=== PATIENT | female | born 1965 | race Caucasian/White ===

== ENCOUNTER 2018-08-09 06:15 | Inpatient (IN) ==
[2018-08-09] MEDS ORDERED: DUONEB (A & A) INH ONE ×2 (06:22→11:48)
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
[2018-08-09 06:27] LABS: ALLEN TEST YES; BE -5.2 mmoll (-3.0-3.0); BLOOD TYPE ARTERIAL; HCO3-(ACT) 20.4 mmoll (20.0-26.0); METHB 0.8 % (0.0-1.5); O2(CT) 18.2 mL/dL (15.0-23.0); PCO2(98.6) 48 mmHg (35-45); PO2(98.6) 341 mmHg (60-100); SAMPLE BLOOD; SAO2 99.5 % (95.0-100.0); THB 15.2 g/dL (11.5-17.4); pH(98.6) 7.27 (7.35-7.45)
[2018-08-09 06:28] LABS: MODALITY NRB
[2018-08-09] MEDS ORDERED: NS 1,000 ML IV ONE ×2 (06:28→11:13)
[2018-08-09 06:29] LABS: O2HB 81.1 % (95.0-99.0)
--- NOTE | 2018-08-09 07:16 | Diag Imaging Result Doc PS360 ---
EXAM: CHEST-1 VIEW 08/09/2018 HISTORY: sob TECHNIQUE: AP portable at 0703 COMMENT: There is some questionable atelectasis in the lung bases. Overall the appearance the chest has not changed appreciably since 10/01/2017. IMPRESSION: Questionable atelectasis. Electronically signed by Ambrose Nice 08/09/2018 7:13 AM
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
[2018-08-09 08:53] LABS: BASO# 0.03 X1000 (0.0-0.2); BASO% 0.3 % (0.0-0.8); EOS# 0.04 X1000 (0.0-0.7); EOS% 0.4 % (0.0-10.0); HEMATOCRIT 47.6 % (37.0-47.0); HEMOGLOBIN 15.3 g/dL (12.0-16.0); LYMPH# 1.94 X1000 (1.2-3.4); LYMPH% 21.2 % (20.5-51.1); MCH 31.4 PG (27-31); MCHC 32.1 g/dL (33-37); MCV 97.7 FL (81-99); MONO# 0.55 X1000 (0.11-0.59); MPV 12.8 FL (7.4-10.4); NEUT# 6.57 X1000 (1.4-6.5); NEUT% 72.1 % (42.2-75.2); PLT 111 X1000 (130-400); RBC 4.87 XMIL (4.2-5.4); RDW 13.8 % (11.5-14.5); WBC 9.13 X1000 (4.8-10.8)
[2018-08-09 09:01] LABS: INR 1.55; PROTIME 19.8 Seconds (11.0-16.0)
[2018-08-09 09:02] LABS: PTT 42.9 Seconds (22.3-41.8)
[2018-08-09 09:10] LABS: AGAP 13; ALB/GLOB RATIO 0.5; ALBUMIN 2.9 g/dL (3.5-5.0); ALKALINE PHOSPHATASE 266 U/L (32-104); BUN 11 mg/dL (8-22); CALCIUM 8.8 mg/dL (8.8-10.2); CHLORIDE 98 mmol/L (98-107); COSMO 283; CREATININE 0.7 mg/dL (0.5-0.9); ESTIMATED GFR > 60; GLUCOSE 334 mg/dL (70-104); GOT 294 U/L (10-30); GPT 376 U/L (10-36); POTASSIUM 4.2 mmol/L (3.5-5.1); SODIUM 135 mmol/L (136-145); TCO2 24 mmol/L (25-35); TOTAL BILIRUBIN 1.02 mg/dL (0.20-1.00); TOTAL PROTEIN 8.3 g/dL (6.3-8.3)
[2018-08-09] MEDS: PROTONIX IV SCH (11:15)
[2018-08-09 11:37] LABS: ALLEN TEST YES; BE -2.9 mmoll (-3.0-3.0); BLOOD TYPE ARTERIAL; HCO3-(ACT) 22.6 mmoll (20.0-26.0); METHB 1.3 % (0.0-1.5); O2(CT) 20.2 mL/dL (15.0-23.0); O2HB 94.6 % (95.0-99.0); PCO2(98.6) 44 mmHg (35-45); PO2(98.6) 220 mmHg (60-100); SAMPLE BLOOD; SAO2 99.7 % (95.0-100.0); THB 14.8 g/dL (11.5-17.4); pH(98.6) 7.33 (7.35-7.45)
[2018-08-09 11:38] LABS: MODALITY NRB
[2018-08-09] MEDS: SODIUM CHLORIDE 0.9% INJ SCH (11:41)
[2018-08-09 12:17] LABS: HEMOGLOBIN A1C 9.1 % (4.8-6.0)
[2018-08-09] MEDS: CARAFATE PO SCH ×3 (12:31→21:00)
[2018-08-09] MEDS ORDERED: TORADOL IV ONE (12:39)
[2018-08-09] MEDS ORDERED: HUMULIN R SUBQ ONE (12:41)
[2018-08-09] MEDS: BUSPAR PO SCH ×2 (12:48→17:00)
[2018-08-09] MEDS: HUMULIN R SUBQ SCH ×2 (16:00→21:00)
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
[2018-08-09 17:49] LABS: URINE SOURCE CLEAN CATCH
[2018-08-09 17:54] LABS: BILIRUBIN URINE SMALL (NEGATIVE); BLOOD URINE NEGATIVE (NEGATIVE); COLOR YELLOW; GLUCOSE URINE 500 mg/dL (NEGATIVE); KETONE URINE TRACE mg/dL (NEGATIVE); LEUKOCYTES URINE LARGE (NEGATIVE); NITRITE URINE NEGATIVE (NEGATIVE); PROTEIN URINE 50 mg/dL (NEGATIVE); TURBIDITY URINE HAZY (CLEAR); UR EPITHELIAL CELLS <10 /HPF (<10); URINE BACTERIA 2+ /HPF; URINE RBC <10 /HPF (<10); URINE WBC TNTC /HPF (<10); UROBILINOGEN URINE 4 mg/dL (NORMAL)
[2018-08-09 18:09] LABS: UR AMPHETAMINES QUAL NONE DETECTED (NONE DETECT); UR BARBITUATES QUAL NONE DETECTED (NONE DETECT); UR BENZODIAZEPIN QUAL NONE DETECTED (NONE DETECT); UR CANNABINOIDS QUAL PRESUMPTIVE POSITIVE (NONE DETECT); UR COCAINE QUAL NONE DETECTED (NONE DETECT); UR METHADONE QUAL NONE DETECTED (NONE DETECT); UR OPIATES QUAL NONE DETECTED (NONE DETECT); UR OXYCODONE QUAL NONE DETECTED (NONE DETECT); UR PCP QUAL NONE DETECTED (NONE DETECT)
[2018-08-09 18:22] LABS: CK INDEX 3.3 (0.0-2.5); CK-MB 9.43 ng/mL (0.0-5.0)
[2018-08-09] MEDS: LOPRESSOR PO SCH (21:47)
[2018-08-09] MEDS: COGENTIN PO SCH (22:13)
[2018-08-09] MEDS: BASAGLAR SUBQ SCH (22:14)
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
[2018-08-10 01:09] LABS: CK INDEX 2.2 (0.0-2.5); CK-MB 9.28 ng/mL (0.0-5.0)
[2018-08-10] MEDS: NORCO-10 PO PRN ×2 (05:15→16:04)
[2018-08-10 06:44] LABS: INR 1.32; PROTIME 17.4 Seconds (11.0-16.0)
[2018-08-10] MEDS: HUMULIN R SUBQ SCH ×4 (07:00→22:20)
[2018-08-10 07:13] LABS: AGAP 8; ALB/GLOB RATIO 0.6; ALBUMIN 2.8 g/dL (3.5-5.0); ALKALINE PHOSPHATASE 182 U/L (32-104); BUN 12 mg/dL (8-22); CALCIUM 8.4 mg/dL (8.8-10.2); CHLORIDE 100 mmol/L (98-107); COSMO 274; CREATININE 0.6 mg/dL (0.5-0.9); ESTIMATED GFR > 60; GLUCOSE 206 mg/dL (70-104); GOT 254 U/L (10-30); GPT 291 U/L (10-36); MAGNESIUM 1.7 mg/dL (1.5-2.7); POTASSIUM 4.3 mmol/L (3.5-5.1); SODIUM 134 mmol/L (136-145); TCO2 26 mmol/L (25-35); TOTAL BILIRUBIN 1.53 mg/dL (0.20-1.00); TOTAL PROTEIN 7.4 g/dL (6.3-8.3)
[2018-08-10 08:40] LABS: ALLEN TEST YES; BE 0.7 mmoll (-3.0-3.0); BLOOD TYPE ARTERIAL; HCO3-(ACT) 25.4 mmoll (20.0-26.0); METHB 1.1 % (0.0-1.5); O2(CT) 18.2 mL/dL (15.0-23.0); O2HB 94.6 % (95.0-99.0); PO2(98.6) 88 mmHg (60-100); SAMPLE BLOOD; THB 13.6 g/dL (11.5-17.4); pH(98.6) 7.32 (7.35-7.45)
[2018-08-10 08:41] LABS: MODALITY CANNULA
[2018-08-10 08:42] LABS: PCO2(98.6) 54 mmHg (35-45)
[2018-08-10] MEDS: BASAGLAR SUBQ SCH ×5 (08:46→22:20)
[2018-08-10] MEDS: BUSPAR PO SCH ×4 (08:48→16:05)
[2018-08-10] MEDS: LOPRESSOR PO SCH ×2 (08:49→22:19)
[2018-08-10] MEDS: CARAFATE PO SCH ×4 (08:49→22:19)
[2018-08-10] MEDS: XARELTO PO SCH (09:00)
[2018-08-10] MEDS: CARDIZEM CD PO SCH (09:00)
--- NOTE | 2018-08-10 10:30 | Diag Imaging Result Doc PS360 ---
EXAM: CHEST-PORTABLE HISTORY: Dyspnea TECHNIQUE: Portable chest single view COMPARISON: 08/09/2018 FINDINGS: The lungs are well expanded. The heart is mildly enlarged. The vessels are mildly distended. There are no infiltrates. No effusion identified. IMPRESSION: Pulmonary edema with mild cardiomegaly. Electronically signed by Charlie Alvarenga 08/10/2018 10:28 AM
[2018-08-10] MEDS ORDERED: LASIX IV ONE (10:45)
[2018-08-10] MEDS: PROTONIX IV SCH (11:15)
[2018-08-10] MEDS: ROCEPHIN 1 GM in NS 50 ML IV SCH (11:30)
[2018-08-10] MEDS: LIPITOR PO SCH (12:00)
[2018-08-10] MEDS: COGENTIN PO SCH ×2 (12:00→22:19)
[2018-08-10] MEDS: ABILIFY PO SCH (12:00)
[2018-08-10] MEDS: PAXIL PO SCH (12:00)
--- NOTE | 2018-08-10 16:07 | PROGRESS NOTE ---
DATE: 08/10/2018 SUBJECTIVE: The patient is resting comfortably in bed. She has been getting up and going to the restroom without any difficulty. She states that she feels a little bit better today. OBJECTIVE: Vital Signs: Temperature 97.9 degrees, blood pressure 121/78, heart rate 78, respirations 14, O2 saturation 96% on 2 L nasal cannula. General: This is a morbidly obese female lying in bed in no acute distress. Heart: S1, S2 normal. Regular rate and rhythm. Lungs: Equal air entry bilaterally. No crackles. No rales. Abdomen: Positive bowel sounds. Soft, nontender, nondistended. Extremities: No edema, no cyanosis. Neurologic : The patient is alert and oriented x4. LABS: Sodium 134, potassium 4.3, chloride 100, CO2 26, BUN 12, creatinine 0.6, glucose 206, calcium 8.4. ABG, pH of 7, 7.32, pCO2 54, PO2 88, bicarb 25. ASSESSMENT AND PLAN: 1. Acute on chronic hypoxemic and hypercapnic respiratory failure. Continue with supportive care, bronchodilator therapy and treatment of the underlying COPD exacerbation. 2. Chronic obstructive pulmonary disease exacerbation. Continue on the current medication regimen. 3. Morbid obesity. Aware. 4. Elevated liver function tests. The patient had an abdominal ultrasound last month that revealed fatty liver disease. We will check a hepatitis profile. Of note, the patient's LFTs were elevated last month. 5. Urinary tract infection. A urine culture has been obtained. Will start the patient on Rocephin. 6. Tobacco dependence. The patient has been counseled about smoking cessation. 7. Diabetes mellitus type 2. Continue on sliding scale insulin and Lantus. 8. Paroxysmal atrial fibrillation. Continue on Cardizem CD. Will restart the patient's Xarelto. 9. Situational depression. Continue on Paxil. cc: Marybel Smiley MD MTDD
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
[2018-08-11] MEDS: NORCO-10 PO PRN ×2 (00:52→17:08)
[2018-08-11 03:37] LABS: ALLEN TEST YES; BLOOD TYPE ARTERIAL; HCO3-(ACT) 27.1 mmoll (20.0-26.0); METHB 1.1 % (0.0-1.5); O2(CT) 17.2 mL/dL (15.0-23.0); PCO2(98.6) 49 mmHg (35-45); PO2(98.6) 58 mmHg (60-100); SAMPLE BLOOD; SAO2 92.8 % (95.0-100.0); THB 13.7 g/dL (11.5-17.4); pH(98.6) 7.38 (7.35-7.45)
[2018-08-11 03:39] LABS: MODALITY CANNULA; O2HB 89.5 % (95.0-99.0)
[2018-08-11 05:58] LABS: HEMATOCRIT 40.2 % (37.0-47.0); HEMOGLOBIN 13.1 g/dL (12.0-16.0); MCH 31.7 PG (27-31); MCHC 32.6 g/dL (33-37); MCV 97.3 FL (81-99); MPV 12.5 FL (7.4-10.4); RBC 4.13 XMIL (4.2-5.4); RDW 13.4 % (11.5-14.5); WBC 8.82 X1000 (4.8-10.8)
[2018-08-11 06:07] LABS: INR 1.66; PROTIME 20.9 Seconds (11.0-16.0)
[2018-08-11] MEDS: HUMULIN R SUBQ SCH ×4 (06:19→21:21)
[2018-08-11 06:22] LABS: AGAP 9; ALB/GLOB RATIO 0.6; ALBUMIN 2.8 g/dL (3.5-5.0); ALKALINE PHOSPHATASE 174 U/L (32-104); BUN 14 mg/dL (8-22); CALCIUM 8.8 mg/dL (8.8-10.2); CHLORIDE 98 mmol/L (98-107); COSMO 273; CREATININE 0.7 mg/dL (0.5-0.9); ESTIMATED GFR > 60; GLUCOSE 171 mg/dL (70-104); GOT 307 U/L (10-30); GPT 324 U/L (10-36); MAGNESIUM 1.7 mg/dL (1.5-2.7); POTASSIUM 4.2 mmol/L (3.5-5.1); SODIUM 134 mmol/L (136-145); TCO2 27 mmol/L (25-35); TOTAL BILIRUBIN 1.48 mg/dL (0.20-1.00); TOTAL PROTEIN 7.5 g/dL (6.3-8.3)
[2018-08-11] MEDS: ROCEPHIN 1 GM in NS 50 ML IV SCH (08:37)
[2018-08-11] MEDS: BASAGLAR SUBQ SCH ×3 (08:38→21:21)
[2018-08-11] MEDS: LIPITOR PO SCH (08:39)
[2018-08-11] MEDS: PAXIL PO SCH (08:39)
[2018-08-11] MEDS: COGENTIN PO SCH ×2 (08:40→21:21)
[2018-08-11] MEDS: LOPRESSOR PO SCH ×2 (08:40→21:20)
[2018-08-11] MEDS: ABILIFY PO SCH (08:40)
[2018-08-11] MEDS: BUSPAR PO SCH ×3 (08:41→17:12)
[2018-08-11] MEDS: CARAFATE PO SCH ×4 (08:41→21:20)
[2018-08-11] MEDS: CARDIZEM CD PO SCH (08:41)
[2018-08-11] MEDS: XARELTO PO SCH (08:41)
--- NOTE | 2018-08-11 09:25 | Diag Imaging Result Doc PS360 ---
EXAM: CHEST-PORTABLE - 08/11/2018 HISTORY: Dyspnea TECHNIQUE: Portable chest COMPARISON: 08/10/2018 FINDINGS: Heart size appears borderline enlarged. There is mild prominence of central vascular markings. There is no dense consolidation, substantial pleural effusion, or pneumothorax identified. IMPRESSION: No significant change from prior. Electronically signed by Tino Causey 08/11/2018 9:23 AM
--- NOTE | 2018-08-11 09:41 | Diag Imaging Result Doc PS360 ---
EXAM: CT HEAD W/O CONTRAST - 08/11/2018 HISTORY: encephalopathy TECHNIQUE: CT head without contrast COMPARISON: None. FINDINGS: There is no evidence of intracranial hemorrhage, mass effect, midline shift, or hydrocephalus. There is no evidence of infarct, although acute infarcts may not be immediately visible. There is an apparent mucous cyst noted at the inferior left maxillary sinus. The bilateral mastoids are less aerated than typical, but the appearance suggests that this is likely long-standing. IMPRESSION: No visible acute intracranial abnormality. No hemorrhage or mass effect. This exam was performed using automated exposure control, adjustment of mA or kV according to patient size, and/or use of iterative reconstruction technique. Electronically signed by Tino Causey 08/11/2018 9:38 AM
--- NOTE | 2018-08-11 10:43 | Diag Imaging Result Doc PS360 ---
EXAM: CT ABDOMEN/PELVIS W/O CONTRAST - 08/11/2018 HISTORY: elevated liver function TECHNIQUE: CT abdomen/pelvis without contrast. No contrast administered per request the referring provider. COMPARISON: 12/31/2014 FINDINGS: The liver is somewhat prominent in size similar to prior. There is apparent fluid in the intersegmental fissure of the left lobe of liver and extending slightly below the fissure, which was not present on the prior exam. There is no gas in the fluid. There is no other ascites identified. There is no other discrete focal liver lesion identified. There are no acute changes identified in the spleen, adrenal glands, or pancreas. There is stable mild enlargement left adrenal gland. The gallbladder surgically absent. There is no renal stone or hydronephrosis identified. There are mildly prominent retroperitoneal lymph nodes similar to prior. There are atherosclerotic calcifications noted. There are lower lumbar spine degenerative changes noted. There are several fat-containing anterior abdominal wall hernias. There is no bowel containing hernia identified. There is no evidence of bowel obstruction. There is no gas containing abscess identified. There is no free air identified. Images of pelvis show no discrete mass or abnormal fluid collection. IMPRESSION: Hepatomegaly. Fluid in intersegmental fissure of left lobe of liver. No associated gas. No other ascites. No other discrete focal liver lesion. Stable nonspecific mild enlargement left adrenal gland. Stable mildly prominent retroperitoneal lymph nodes. Multiple fat-containing anterior abdominal wall hernias. No bowel containing hernia. No bowel obstruction. This exam was performed using automated exposure control, adjustment of mA or kV according to patient size, and/or use of iterative reconstruction technique. Electronically signed by Tino Causey 08/11/2018 10:41 AM
[2018-08-11] MEDS: DUONEB (A & A) INH SCH ×4 (11:09→23:36)
[2018-08-11] MEDS: LACTULOSE PO SCH ×2 (11:56→21:21)
[2018-08-11] MEDS: PROTONIX IV SCH (11:57)
[2018-08-11] MEDS ORDERED: VITAMIN K 10 MG in NS 50 ML IV ONE (11:57)
[2018-08-11 13:12] LABS: HEPATITIS PROFILE ACUTE SEE COMMENTS
--- NOTE | 2018-08-11 13:48 | PROGRESS NOTE ---
DATE: 08/11/2018 SUBJECTIVE: The patient is awake but lethargic at times. OBJECTIVE: Vital Signs: Temperature 98.3 degrees, blood pressure 102/64, heart rate 58, respirations 18, O2 saturation 96% on 2 L nasal cannula. General: This is a morbidly obese female lying in bed in no acute distress. Heart: S1, S2. Normal, bradycardic. Lungs: Mild expiratory wheezes bilaterally. Abdomen: Positive bowel sounds. Soft, obese, nontender. Extremities: No edema, no cyanosis. Neuro: The patient is alert and oriented x3. LABS: White blood cell count 8.8, hemoglobin 13, hematocrit 40, platelets 124, 000, INR 1.6, sodium 134, potassium 4.2, chloride 98, CO2 27, BUN 14, creatinine 0.7, glucose 171, calcium 8.8, AST 307, ALT 324, alkaline phosphatase 174, ammonia 67, albumin 2.8. CT of the abdomen and pelvis shows hepatomegaly. No ascites. No liver lesion. Mild retroperitoneal lymph nodes. ASSESSMENT AND PLAN: 1. Acute on chronic hypoxemic respiratory failure. Continue with bronchodilator therapy plus supplemental oxygen. 2. Chronic obstructive pulmonary disease exacerbation. Continue with bronchodilator therapy and supplemental oxygen. 3. Diabetes mellitus type 2. Continue on glargine plus sliding scale insulin. 4. Paroxysmal atrial fibrillation. Continue on Cardizem CD and Xarelto. 5. Elevated liver function tests/Hep C. Will await recommendations from GI. 6. Coagulopathy. Vitamin K has been ordered by GI. Will monitor the patient 's INR closely. 7. Constipation. Will add lactulose. 8. Hyperammonemia. Lactulose has been added, will monitor the patient's mental status closely. 9. Situational depression. Continue on Paxil. 10. Urinary tract infection secondary to Klebsiella. Continue on Rocephin. 11. Will consult physical therapy. cc: Marybel Smiley MD MTDD
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
[2018-08-12] MEDS: NORCO-10 PO PRN ×3 (03:16→21:21)
[2018-08-12] MEDS: DUONEB (A & A) INH SCH ×6 (03:20→23:35)
[2018-08-12 05:54] LABS: INR 1.56; MCH 31.7 PG (27-31); MCHC 32.5 g/dL (33-37); MCV 97.6 FL (81-99); MPV 13.1 FL (7.4-10.4); PROTIME 19.9 Seconds (11.0-16.0); RBC 4.1 XMIL (4.2-5.4); RDW 13.4 % (11.5-14.5); WBC 7.86 X1000 (4.8-10.8)
[2018-08-12 06:07] LABS: AGAP 11; ALB/GLOB RATIO 0.6; ALBUMIN 2.7 g/dL (3.5-5.0); ALKALINE PHOSPHATASE 185 U/L (32-104); BUN 16 mg/dL (8-22); CHLORIDE 103 mmol/L (98-107); COSMO 285; CREATININE 0.7 mg/dL (0.5-0.9); ESTIMATED GFR > 60; GLUCOSE 184 mg/dL (70-104); GOT 364 U/L (10-30); GPT 340 U/L (10-36); MAGNESIUM 1.7 mg/dL (1.5-2.7); POTASSIUM 4.1 mmol/L (3.5-5.1); SODIUM 140 mmol/L (136-145); TCO2 26 mmol/L (25-35); TOTAL BILIRUBIN 1.03 mg/dL (0.20-1.00); TOTAL PROTEIN 7.6 g/dL (6.3-8.3)
[2018-08-12] MEDS: HUMULIN R SUBQ SCH ×4 (06:22→21:19)
--- NOTE | 2018-08-12 07:16 | Diag Imaging Result Doc PS360 ---
EXAM: CHEST-PORTABLE 08/12/2018 HISTORY: Dyspnea TECHNIQUE: AP portable at 0557 COMMENT: The inspiration is less optimal than on 08/11/2018. Considering this there has actually been some improvement with regard to the opacity in the right base. IMPRESSION: Improved pulmonary edema. Electronically signed by Ambrose Nice 08/12/2018 7:14 AM
[2018-08-12] MEDS: CARAFATE PO SCH ×4 (08:29→21:18)
[2018-08-12] MEDS: ROCEPHIN 1 GM in NS 50 ML IV SCH (08:29)
[2018-08-12] MEDS: XARELTO PO SCH (08:29)
[2018-08-12] MEDS: ABILIFY PO SCH (08:31)
[2018-08-12] MEDS: COGENTIN PO SCH ×2 (08:32→21:19)
[2018-08-12] MEDS: BUSPAR PO SCH ×3 (08:32→17:11)
[2018-08-12] MEDS: LIPITOR PO SCH (08:32)
[2018-08-12] MEDS: CARDIZEM CD PO SCH (08:33)
[2018-08-12] MEDS: LACTULOSE PO SCH ×2 (08:33→21:19)
[2018-08-12] MEDS: PAXIL PO SCH (08:33)
[2018-08-12] MEDS: LOPRESSOR PO SCH ×2 (08:33→21:19)
[2018-08-12] MEDS: BASAGLAR SUBQ SCH ×3 (08:34→21:20)
[2018-08-12] MEDS: PROTONIX IV SCH (11:01)
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
--- NOTE | 2018-08-13 01:53 | PROGRESS NOTE ---
DATE: 08/12/2018 SUBJECTIVE: The nursing staff reports that the patient was confused overnight. OBJECTIVE: Vital Signs: Temperature 97.9 degrees, blood pressure 129/62, heart rate 53, respirations 19, O2 saturation is 95% on 3 L nasal cannula. General: This is a morbidly obese female lying in bed in no acute distress. Heart: S1 and S2 normal. Bradycardic. Lungs: Equal air entry bilaterally. Mild expiratory wheezes. Abdomen: Positive bowel sounds. Soft, nontender, nondistended. Extremities: No edema. No cyanosis. Neurologic: The patient is alert and oriented x3. LABS: White blood cell count 7.8, hemoglobin 13, hematocrit 40, platelets 127, 000. INR 1.5. Sodium 140, potassium 4.1, chloride 103, CO2 is 26, BUN 16, creatinine 0.7 glucose 184, total bilirubin 1, AST 364, ALT 340, alkaline phosphatase 185, albumin 2.7. ASSESSMENT AND PLAN: 1. Encephalopathy. The patient's confusion appears to be worse at night. The head CT done yesterday was unremarkable. We will continue to monitor the patient closely. 2. Acute on chronic hypoxemic respiratory failure. Stable. Continue with bronchodilator therapy and supplemental oxygen. 3. Chronic obstructive pulmonary disease. Continue with bronchodilator therapy and supplemental oxygen. 4. Elevated liver function tests with hepatitis C. Unchanged. Will await further recommendations from Gastroenterology. 5. Paroxysmal atrial fibrillation. Continue on Cardizem CD and Xarelto. 6. Diabetes mellitus type 2. Continue on glargine and sliding scale insulin. 7. Coagulopathy. Slightly improved. The patient received vitamin K yesterday. We will repeat the international normalized ratio tomorrow. 8. Constipation. Continue with laxative therapy. 9. Urinary tract infection secondary to Klebsiella. Continue on Rocephin. 10. Morbid obesity. Aware. 11. Situational depression. Continue on Paxil. 12. Continue with physical therapy. cc: MD DINO Mccain
[2018-08-13] MEDS: DUONEB (A & A) INH SCH ×6 (03:40→23:12)
[2018-08-13 05:39] LABS: HEMATOCRIT 38.9 % (37.0-47.0); HEMOGLOBIN 12.7 g/dL (12.0-16.0); MCH 31.5 PG (27-31); MCHC 32.6 g/dL (33-37); MCV 96.5 FL (81-99); MPV 13.1 FL (7.4-10.4); RBC 4.03 XMIL (4.2-5.4); RDW 13.3 % (11.5-14.5); WBC 7.15 X1000 (4.8-10.8)
[2018-08-13 05:46] LABS: INR 1.59; PROTIME 20.1 Seconds (11.0-16.0)
[2018-08-13 06:01] LABS: AGAP 11; ALB/GLOB RATIO 0.6; ALBUMIN 2.7 g/dL (3.5-5.0); ALKALINE PHOSPHATASE 169 U/L (32-104); BUN 13 mg/dL (8-22); CALCIUM 8.2 mg/dL (8.8-10.2); CHLORIDE 101 mmol/L (98-107); COSMO 281; CREATININE 0.6 mg/dL (0.5-0.9); ESTIMATED GFR > 60; GLUCOSE 153 mg/dL (70-104); GOT 341 U/L (10-30); GPT 336 U/L (10-36); MAGNESIUM 1.5 mg/dL (1.5-2.7); POTASSIUM 3.5 mmol/L (3.5-5.1); SODIUM 139 mmol/L (136-145); TCO2 27 mmol/L (25-35); TOTAL BILIRUBIN 1.14 mg/dL (0.20-1.00); TOTAL PROTEIN 7.5 g/dL (6.3-8.3)
[2018-08-13] MEDS: HUMULIN R SUBQ SCH ×4 (06:41→20:54)
--- NOTE | 2018-08-13 07:48 | Diag Imaging Result Doc PS360 ---
CHEST-PORTABLE - 08/13/2018 INDICATION: Dyspnea COMPARISON: 08/12/2018 FINDINGS: Stable cardiomegaly and pulmonary vascular congestion. No infiltrates or significant edema. No pneumothorax or large pleural effusion. Lung volumes are somewhat low. IMPRESSION: No change from prior. Electronically signed by Josef Estrella 08/13/2018 7:46 AM
[2018-08-13] MEDS: CARDIZEM CD PO SCH (08:46)
[2018-08-13] MEDS: LOPRESSOR PO SCH ×2 (08:46→20:53)
[2018-08-13] MEDS: ROCEPHIN 1 GM in NS 50 ML IV SCH (08:46)
[2018-08-13] MEDS: LACTULOSE PO SCH ×2 (08:46→20:54)
[2018-08-13] MEDS: COGENTIN PO SCH ×2 (08:46→20:54)
[2018-08-13] MEDS: BUSPAR PO SCH ×3 (08:46→20:53)
[2018-08-13] MEDS: CARAFATE PO SCH ×4 (08:46→20:53)
[2018-08-13] MEDS: PROTONIX IV SCH (08:46)
[2018-08-13] MEDS: PAXIL PO SCH (08:47)
[2018-08-13] MEDS: XARELTO PO SCH (08:47)
[2018-08-13] MEDS: BASAGLAR SUBQ SCH ×3 (08:47→20:54)
[2018-08-13] MEDS: ABILIFY PO SCH (08:47)
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
--- NOTE | 2018-08-13 15:51 | PROGRESS NOTE ---
DATE: 08/13/2018 SUBJECTIVE: The patient resting comfortably in bed. Not in any obvious distress. OBJECTIVE: Vital Signs: Vital signs are as follows: Temperature 97.9 degrees, pulse 54, respiratory rate 19, blood pressure is 114/57, oxygen is 91%. HEENT: Atraumatic, normocephalic. Cardiovascular System: Distant heart sounds. Respiratory System: Relatively clear to auscultation. May have occasional rhonchi. Abdomen: Obese, nontender. No masses felt. Extremities: No significant edema. Central nervous system: No obvious focal deficits noted. LABS: Labs are as follows: WBC is 7.15, hematocrit is 38.9 with a platelet count of 112. INR is 1.59. Last ABG done on 08/11/2018 7.38/49/58/92.8 percent. Sodium is 139, potassium is 3.5, chloride is 101, bicarbonate is 27. BUN is 8, creatinine 0.6. Liver function tests: AST 341, ALT 36. ASSESSMENT AND PLAN: 1. Encephalopathy. This seems to be improving. This may be related to hepatic encephalopathy. We will continue patient on lactulose, and continue to follow up on patient's mental status. 2. Acute on chronic respiratory failure. Maintain patient on oxygen. Follow up on respiratory status. 3. Chronic obstructive pulmonary disease. Continue nebulized bronchodilators. 4. Chronic hepatitis C infection. CT of the abdomen and pelvis shows evidence of hepatomegaly. We will get abdominal ultrasound, and also check her alpha fetoprotein level. 5. Paroxysmal atrial fibrillation. Continue rate controlling agent as well as Xarelto. 6. Diabetes mellitus. Continue blood sugar monitoring, as well as sliding scale insulin. 7. Urinary tract infection secondary to Klebsiella. Continue antibiotics. 8. Morbid obesity. Aware. The patient will need to be on a low-calorie diet. 9. Situational depression. Continue Paxil. 10. Deep vein thrombosis prophylaxis. The patient is on Xarelto. 11. Deconditioning. The patient will require routine physical therapy. cc: Oscar Aly MD
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
[2018-08-13] MEDS: LIPITOR PO SCH (20:53)
[2018-08-14] MEDS: DUONEB (A & A) INH SCH ×5 (03:22→19:50)
[2018-08-14] MEDS: HUMULIN R SUBQ SCH ×4 (06:30→21:22)
--- NOTE | 2018-08-14 07:37 | Diag Imaging Result Doc PS360 ---
EXAM: CHEST-PORTABLE HISTORY: Dyspnea TECHNIQUE: Portable chest single view COMPARISON: 08/13/2018 FINDINGS: Poor inspiratory effort. The heart is mildly enlarged. The vessels are mildly distended. There are no infiltrates. No effusion identified. IMPRESSION: Mild pulmonary edema with mild cardiomegaly. Electronically signed by Charlie Alvarenga 08/14/2018 7:35 AM
--- NOTE | 2018-08-14 09:03 | Diag Imaging Result Doc PS360 ---
EXAM: US ABDOMEN-COMPLETE HISTORY: hep.c TECHNIQUE: Abdominal ultrasound COMPARISON: 06/25/2018 FINDINGS: Difficult exam due to patient's body habitus and condition. The pancreas is predominantly obscured. No abdominal aortic aneurysm. There is fatty infiltration of the liver. It is difficult to penetrate the posterior liver. The liver measures 20.2 cm in length. There is a 5.5 cm cyst within it. The common bile that measures 4 mm. The gallbladder has been removed. Normal right kidney. No hydronephrosis. Normal spleen. The left kidney is partly obscured. No hydronephrosis. IMPRESSION: 1.Hepatomegaly with fatty infiltration. There is a cyst in the left lobe versus fluid within the fissure. 2.Cholecystectomy Electronically signed by Charlie Alvarenga 08/14/2018 9:00 AM
[2018-08-14] MEDS: ROCEPHIN 1 GM in NS 50 ML IV SCH (09:33)
[2018-08-14] MEDS: PAXIL PO SCH (09:34)
[2018-08-14] MEDS: XARELTO PO SCH (09:34)
[2018-08-14] MEDS: LIPITOR PO SCH (09:34)
[2018-08-14] MEDS: COGENTIN PO SCH ×2 (09:35→21:21)
[2018-08-14] MEDS: ABILIFY PO SCH (09:35)
[2018-08-14] MEDS: SODIUM CHLORIDE 0.9% INJ SCH (09:35)
[2018-08-14] MEDS: CARAFATE PO SCH ×4 (09:35→21:22)
[2018-08-14] MEDS: LACTULOSE PO SCH ×2 (09:35→21:22)
[2018-08-14] MEDS: PROTONIX IV SCH (09:35)
[2018-08-14] MEDS: CARDIZEM CD PO SCH (09:35)
[2018-08-14] MEDS: BUSPAR PO SCH ×3 (09:35→16:54)
[2018-08-14] MEDS: LOPRESSOR PO SCH ×2 (09:35→21:21)
[2018-08-14] MEDS: BASAGLAR SUBQ SCH ×3 (09:37→21:22)
--- NOTE | 2018-08-14 11:25 | PROGRESS NOTE ---
DATE: 08/14/2018 SUBJECTIVE: The patient is resting comfortably in bed. The patient is awake and seated on a chair. OBJECTIVE: Vital Signs: Temperature 98.7 degrees, pulse 62, respirations 28, blood pressure is 125/53, oxygen saturation is 92%. HEENT: She is atraumatic and normocephalic. Cardiovascular System: Distant heart sounds. Respiratory System: No rales or rhonchi noted. Abdomen: Obese, nontender. No masses felt. Extremities: Edema noted in the lower extremities. Central Nervous System: No obvious focal deficit noted. Labs: Alpha fetoprotein level found to be raised at 18.3. Abdominal ultrasound shows hepatomegaly with fatty infiltration. ASSESSMENT AND PLAN: 1. Encephalopathy. This seem to be improving. Continue to follow up on the patient's clinical progression. 2. Acute on chronic respiratory failure. We are going to maintain patient on oxygen. Follow up on her respiratory status. Check arterial blood gases. 3. Chronic obstructive pulmonary disease. Continue nebulized bronchodilators. 4. Chronic hepatitis C infection. The patient's alpha fetoprotein level was found to be raised. Abdominal ultrasound shows evidence of a fatty liver. We will get the patient to follow up with gastroenterology as well as oncology as an outpatient. 5. Paroxysmal atrial fibrillation. Continue rate controlling agent as well as Xarelto. 6. Diabetes mellitus. Continue blood sugar monitoring as well as sliding scale insulin. 7. Urinary tract infection secondary to Klebsiella. Continue antibiotics. 8. Morbid obesity. The patient will need to be on a low calorie diet. 9. Situational depression. Continue Paxil. 10. Deep vein thrombosis prophylaxis. Patient is on Xarelto. 11. Deconditioning. Physical therapy consulted. cc: Oscar Aly MD
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
[2018-08-14 12:26] LABS: ALLEN TEST YES; BE 4.4 mmoll (-3.0-3.0); BLOOD TYPE ARTERIAL; HCO3-(ACT) 28.3 mmoll (20.0-26.0); METHB 0.8 % (0.0-1.5); O2(CT) 16.7 mL/dL (15.0-23.0); O2HB 93.6 % (95.0-99.0); PCO2(98.6) 39 mmHg (35-45); PO2(98.6) 68 mmHg (60-100); SAMPLE BLOOD; SAO2 96.1 % (95.0-100.0); THB 12.7 g/dL (11.5-17.4); pH(98.6) 7.47 (7.35-7.45)
[2018-08-14 12:27] LABS: MODALITY ROOM AIR
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
[2018-08-14] MEDS ORDERED: HALDOL IM PRN (16:43)
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
[2018-08-15] MEDS: DUONEB (A & A) INH SCH ×7 (00:04→23:00)
[2018-08-15] MEDS: NORCO-10 PO PRN ×2 (00:06→20:54)
[2018-08-15] MEDS: HUMULIN R SUBQ SCH ×4 (06:06→20:56)
--- NOTE | 2018-08-15 07:46 | Diag Imaging Result Doc PS360 ---
EXAM: CHEST-PORTABLE 08/15/2018 HISTORY: Dyspnea TECHNIQUE: AP portable at 0546 COMMENT: There is increased pulmonary vascularity and interstitial opacity. There is cardiomegaly. Compared to 08/14/2018 the pulmonary edema is slightly worse. IMPRESSION: Worsened pulmonary edema. Electronically signed by Ambrose Nice 08/15/2018 7:44 AM
[2018-08-15] MEDS: PAXIL PO SCH (09:09)
[2018-08-15] MEDS: LEVAQUIN PO SCH (09:09)
[2018-08-15] MEDS: COGENTIN PO SCH ×2 (09:09→20:55)
[2018-08-15] MEDS: LOPRESSOR PO SCH ×2 (09:10→20:55)
[2018-08-15] MEDS: BUSPAR PO SCH ×3 (09:10→18:53)
[2018-08-15] MEDS: CARDIZEM CD PO SCH (09:10)
[2018-08-15] MEDS: LIPITOR PO SCH (09:10)
[2018-08-15] MEDS: XARELTO PO SCH (09:10)
[2018-08-15] MEDS: LACTULOSE PO SCH ×3 (09:10→20:56)
[2018-08-15] MEDS: CARAFATE PO SCH ×4 (09:10→20:55)
[2018-08-15] MEDS: BASAGLAR SUBQ SCH ×3 (09:11→22:05)
[2018-08-15] MEDS: ABILIFY PO SCH (09:12)
[2018-08-15] MEDS: PROTONIX IV SCH (09:42)
[2018-08-15] MEDS: ROCEPHIN 1 GM in NS 50 ML IV SCH (12:42)
[2018-08-15 13:06] LABS: HCV BY PCR SEE COMMENTS
--- NOTE | 2018-08-15 13:07 | PROGRESS NOTE ---
DATE: 08/15/2018 SUBJECTIVE: Patient resting in bed. OBJECTIVE: Vital signs: Temperature 98.2 degrees, pulse 60, respiratory rate is 22, blood pressure 125/63, oxygen saturation is 97%. HEENT: Atraumatic, normocephalic. Cardiovascular: Distant heart sounds. Respiratory: No rales or rhonchi noted. Abdomen: Obese, nontender. Extremities: Trace edema in the lower extremities. Central nervous system: No obvious focal deficits noted. LABORATORY DATA: Blood sugar is 181. ASSESSMENT AND PLAN: 1. Encephalopathy, improving. However, the patient has had some moments of hallucinations as well as abnormal behavior in the last 24 hours. We will use antipsychotic for aggressive/agitation and also consult [facility]ri[facility] Gip[facility]. 2. Acute on chronic respiratory failure. Continue oxygen. Follow up on respiratory status. 3. Chronic obstructive pulmonary disease. Continue nebulized bronchodilators. 4. Chronic hepatitis C virus infection with elevated alpha fetoprotein level. Will need to follow up with GI as well as Oncology in the outpatient. 5. Paroxysmal atrial fibrillation. Continue rate controlling agent as well as Xarelto. 6. Diabetes mellitus. Continue blood sugar monitoring as well as sliding scale insulin. 7. Urinary tract infection. Continue antibiotics. 8. Morbid obesity. The patient will need to be on a low calorie diet. 9. Situational depression. Continue Paxil. 10. Deep vein thrombosis prophylaxis. Patient is on Xarelto. 11. Deconditioning. Physical Therapy consult. 12. Disposition. The patient will be going home with home health services. We will also consult with [employer] to help with the discharge planning. cc: Oscar Aly MD
--- NOTE | 2018-08-15 14:42 | PROGRESS NOTE ---
DATE: 08/15/2018 SUBJECTIVE: Room #303. Ms. Hinojosa reports feeling better today than yesterday, much better than several days ago. There is report that she has had some hallucinations. She is not able now to give me a valid history of hallucination herself. She received haloperidol 2 mg overnight and seemed to be improved. There is reported to be history of longstanding psychiatric illness. ASSESSMENT: From neurologic standpoint, no new suggestions. Presenting encephalopathy seems to have resolved. I agree with plans to consult [facility] Gipson. Thanks for asking Neurology to see Ms. Hinojosa. cc: MD DINO Fitch III
--- NOTE | 2018-08-15 20:08 | PULMONOLOGY PROGRESS NOTE ---
DATE: 08/15/2018 SUBJECTIVE: The patient is awake, alert, and conversant. She is without specific complaints. She currently denies hallucinations, but they are reported in the chart. OBJECTIVE: Vital Signs: BP 136/90, heart rate 58, respiratory rate 22, oxygen saturation 98% on room air. HEENT: Pupils are equal and reactive. Oropharynx is clear. Neck: Supple. Chest: Reveals prolonged expiratory phase without wheezing or rhonchi. Cardiac: S1, S2. Abdomen: Obese and soft. Extremities: Without edema. DIAGNOSTIC STUDIES: Chest x-ray is a portable technique. Mild vascular prominence. IMPRESSION: A 52-year-old with: 1. Morbid obesity with a Body Mass Index of 50. 2. Ongoing tobacco use. 3. Lactic acidosis on presentation. 4. Confusion with history of bipolar disorder. RECOMMENDATIONS: 1. The patient has been on room air for the last 2 days and may not need oxygen discharge. 2. Patient was strongly encouraged to discontinue tobacco use. 3. Outpatient sleep evaluation is strongly recommended. cc: Yg Maher MD
[2018-08-16] MEDS: DUONEB (A & A) INH SCH ×6 (03:00→22:45)
[2018-08-16] MEDS: NORCO-10 PO PRN (04:14)
[2018-08-16] MEDS: HUMULIN R SUBQ SCH ×4 (06:41→22:20)
[2018-08-16] MEDS: LEVAQUIN PO SCH (10:34)
[2018-08-16] MEDS: PAXIL PO SCH (10:34)
[2018-08-16] MEDS: LACTULOSE PO SCH ×2 (10:34→22:19)
[2018-08-16] MEDS: CARDIZEM CD PO SCH (10:35)
[2018-08-16] MEDS: CARAFATE PO SCH ×4 (10:35→22:19)
[2018-08-16] MEDS: LIPITOR PO SCH (10:35)
[2018-08-16] MEDS: LOPRESSOR PO SCH ×2 (10:35→22:19)
[2018-08-16] MEDS: XARELTO PO SCH (10:35)
[2018-08-16] MEDS: COGENTIN PO SCH ×2 (10:35→22:19)
[2018-08-16] MEDS: BUSPAR PO SCH ×3 (10:36→16:59)
[2018-08-16] MEDS: ABILIFY PO SCH (10:36)
[2018-08-16] MEDS: BASAGLAR SUBQ SCH (10:57)
[2018-08-16] MEDS: ROCEPHIN 1 GM in NS 50 ML IV SCH (11:00)
--- NOTE | 2018-08-16 13:02 | PROGRESS NOTE ---
DATE: 08/16/2018 Ms. Hinojosa is awake, alert, and attentive. She answered questions appropriately. She was up and walking without assistance and appeared steady. She reports no further hallucinations. Her encephalopathy seems to be continuing to improve. I do not think she has had a dose of antipsychotic medicine in the last 24 hours, and she is bright and appropriate today. She has longstanding psychiatric problems which may need more attention, but I do not think there is anything more to suggest right now from neurologic standpoint. Thanks for asking us to see Ms. Hinojosa. cc: MD DINO Fitch III
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
--- NOTE | 2018-08-16 19:12 | PROGRESS NOTE ---
DATE: 08/16/2018 SUBJECTIVE: Patient awake seated on the side of the bed. Not in any obvious distress. Her sensorium seems to be clear. OBJECTIVE: Vital signs: Temperature 98.8 degrees, pulse 63, respiratory 24, blood pressure 134/56, O2 saturation is 94%. HEENT: She is atraumatic, normocephalic. Cardiovascular: S1, S2. Respiratory: Has evidence of good air entry bilaterally. Abdomen: Soft, nontender, no masses felt. Extremities: No evidence of significant edema noted. Central nervous system: No obvious focal deficit noted. LABORATORY DATA: Magnesium level is 1.6. ASSESSMENT AND PLAN: 1. Encephalopathy improving. No episodes of abnormal behavior or agitation report in the last 24 hours. Gabriela Gipson consulted to evaluate patient for psychiatric problems. 2. Acute on chronic respiratory failure. Continue oxygen. Follow up on respiratory status. Pulmonary following. 3. Chronic obstructive pulmonary disease. Continue nebulized bronchodilators. 4. Chronic hepatitis C virus infection with elevated alpha fetoprotein level. Patient will need GI and oncology followup in the outpatient. 5. Paroxysmal atrial fibrillation. Continue rate controlling agent as well as Xarelto. 6. Diabetes mellitus. Continue blood sugar monitor as well as sliding scale insulin. 7. Urinary tract infection. Continue antibiotics. 8. Morbid obesity. Recommend low calorie diet. 9. Situational depression. Continue Paxil.. 10. Deconditioning, PT consulted. 11. Disposition. We are waiting evaluation from [facility]. If the patient is accepted over there she can be transferred down there otherwise patient can be discharged home with home health services. cc: Oscar Aly MD MTDD
[2018-08-17] MEDS: DUONEB (A & A) INH SCH ×4 (04:25→15:42)
[2018-08-17] MEDS: HUMULIN R SUBQ SCH ×3 (06:10→16:42)
[2018-08-17] MEDS ORDERED: INSULIN PEN NEEDLES ONE (06:39)
[2018-08-17] MEDS: NORCO-10 PO PRN ×2 (08:24→13:47)
[2018-08-17] MEDS: PRILOSEC PO SCH ×2 (08:25→10:14)
[2018-08-17] MEDS: ROCEPHIN 1 GM in NS 50 ML IV SCH (08:25)
[2018-08-17] MEDS: LACTULOSE PO SCH (08:25)
[2018-08-17] MEDS: XARELTO PO SCH (08:25)
[2018-08-17] MEDS: LEVAQUIN PO SCH (08:26)
[2018-08-17] MEDS: ABILIFY PO SCH (08:26)
[2018-08-17] MEDS: CARAFATE PO SCH ×3 (08:26→16:42)
[2018-08-17] MEDS: LIPITOR PO SCH (08:26)
[2018-08-17] MEDS: PAXIL PO SCH (08:26)
[2018-08-17] MEDS: BASAGLAR SUBQ SCH (08:26)
[2018-08-17] MEDS: COGENTIN PO SCH (08:26)
[2018-08-17] MEDS: CARDIZEM CD PO SCH (08:27)
[2018-08-17] MEDS: BUSPAR PO SCH ×3 (08:27→16:42)
[2018-08-17] MEDS: LOPRESSOR PO SCH (08:27)
[2018-08-17 15:43] VITALS: BP 147/75
[2018-08-17 17:25] LABS: BASO# 0.05 X1000 (0.0-0.2); BASO% 0.5 % (0.0-0.8); EOS# 0.21 X1000 (0.0-0.7); EOS% 2.1 % (0.0-10.0); HEMATOCRIT 41.6 % (37.0-47.0); HEMOGLOBIN 13.3 g/dL (12.0-16.0); IMM GRAN# 0.02 X1000 (0.0-0.04); IMM GRAN% 0.2 % (0.0-0.5); LYMPH# 3.15 X1000 (1.2-3.4); LYMPH% 31.9 % (20.5-51.1); MONO# 0.84 X1000 (0.11-0.59); MONO% 8.5 % (1.7-9.3); MPV 12.7 FL (7.4-10.4); NEUT# 5.62 X1000 (1.4-6.5); NEUT% 56.8 % (42.2-75.2); PLT 142 X1000 (130-400); RBC 4.29 XMIL (4.2-5.4); RDW 13.1 % (11.5-14.5); WBC 9.89 X1000 (4.8-10.8)
[2018-08-17 17:27] LABS: AGAP 8; ALB/GLOB RATIO 0.7; ALBUMIN 3.1 g/dL (3.5-5.0); ALKALINE PHOSPHATASE 175 U/L (32-104); BUN 11 mg/dL (8-22); CALCIUM 9.6 mg/dL (8.8-10.2); CHLORIDE 96 mmol/L (98-107); COSMO 270; CREATININE 0.6 mg/dL (0.5-0.9); ESTIMATED GFR > 60; GLUCOSE 179 mg/dL (70-104); GOT 228 U/L (10-30); GPT 277 U/L (10-36); SODIUM 133 mmol/L (136-145); TCO2 29 mmol/L (25-35); TOTAL BILIRUBIN 1.09 mg/dL (0.20-1.00); TOTAL PROTEIN 7.6 g/dL (6.3-8.3)
[2018-08-17 17:44] LABS: T4 11.14 ug/dL (4.60-12.00); TSH 2.88 uIUmL (0.27-4.20)
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
--- NOTE | 2018-08-19 07:21 | EKG Report ---
Test Performed on : 08/17/2018 5:06:21 PM Test Reason : transferring Blood Pressure : / mmHG Vent. Rate : 063 BPM Atrial Rate : 063 BPM P-R Int : 188 ms QRS Dur : 084 ms QT Int : 490 ms P-R-T Axes : 068 016 045 degrees QTc Int : 501 ms Normal sinus rhythm. Low voltage QRS Prolonged QT Abnormal ECG When compared with ECG of 09-AUG-2018 07:53, (Unconfirmed) fusion complexes are no longer present Vent. rate has decreased BY 40 BPM Criteria for Anteroseptal infarct are no longer present Criteria for Inferior infarct are no longer present Unconfirmed Result
== END 2018-08-17 17:18 | DRG 917 ==
LOC: ED 06:15 → SUATTDRO 12:46 → EDIPHOLD 12:46 → 3S 08-10 11:45 → 3N 08-14 23:21
PROVIDERS: ATTEND Internal Medicine
CPT/HCPCS: 70450; 71010; 71045; 74176; 76700; 80053; 80061; 80074; 80101; 80301; 80307; 80324; 80345; 80346; 80353; 80358; 80361; 80365; 81001; 81256; 82103; 82105; 82140; 82390; 82550; 82553; 82746; 82805; 82948; 83036; 83516; 83605; 83721; 83735; 83992; 84436; 84439; 84443; 84484; 85025; 85027; 85610; 85730; 86038; 86039; 86235; 86255; 87070; 87077; 87088; 87186; 87205; 87522; 93005; 94640; 94761; 94762; 94799; 96374; 96375; 96376; 97162; 97530; 99285; A9270; C9113; G0431; G0434; G0479; G0480; J0696; J1630; J1885; J1940; J3430; J7030; S0164; XXXXX